=== PATIENT | female | born 1955 | race Caucasian/White ===

== ENCOUNTER → 2016-06-12 | Outpatient (CLI) | payer MEDICARE, OTHER ==
[~2016-06-12] MED LIST: ASPI-556 PO; CARV25 PO; FOLI1 PO; LISI-662 PO; METF500T7 PO; METO25 PO; MIRT15 PO; PHOSLOC PO
== END | disposition home or self-care (01) ==
LOC: RADMN 13:42
PROVIDERS: ATTEND Family Medicine
DX: I67.2 Cerebral atherosclerosis (principal); G31.89 Other specified degenerative diseases of nervous system; G93.89 Other specified disorders of brain; R90.82 White matter disease, unspecified
CPT/HCPCS: 70450

== ENCOUNTER 2021-12-30 13:12 | Inpatient (IN) | payer MEDICARE, OTHER ==
[2021-12-30] VITALS (8 sets, daily range): BP systolic 97–120; BP diastolic 40–79
[~2021-12-30] VITALS: Ht 152.4 cm; Wt 60.3 kg
[~2021-12-30 13:12] MED LIST changes: +ASPI-1444 PO; -ASPI-556 PO; +FOLI-130 PO; -FOLI1 PO; -LISI-662 PO; +LISI-894 PO; +METF-81 PO; -METF500T7 PO; -METO25 PO; +MIRT-89 PO; -MIRT15 PO
[2021-12-30 14:56] LABS: GLUCOSE,POINT OF CARE 169 MG/DL (70-110)
[2021-12-30 15:04] LABS: COVID AG,FIA SOURCE NASOPHARYNGEAL
[2021-12-30 15:07] LABS: BASOPHILS % (AUTO) 0.7 % (0.0-2.0); EOSINOPHILS % (AUTO) 0 % (1.0-6.0); HEMATOCRIT 38.6 % (36-46); HEMOGLOBIN 12.2 g/dL (12.0-16.0); LYMPHOCYTES % (AUTO) 12.3 % (22.0-44.0); MEAN CORPUSCULAR HEMOGLOBIN 29.1 pg (26.0-34.0); MEAN CORPUSCULAR HGB CONC 31.6 G/dL (31.0-37.0); MEAN CORPUSCULAR VOLUME 92 fL (80-100); MONOCYTES % (AUTO) 6.2 % (2.0-9.0); NEUTROPHILS # (AUTO) 13.3 K/uL (1.8-7.7); NEUTROPHILS % (AUTO) 80.8 % (40.0-70.0); PLATELET COUNT (AUTO) 250 K/uL (150-450); RED BLOOD CELL COUNT(AUTO) 4.18 MIL/uL (4.00-5.20); RED CELL DISTRIBUTION WIDTH 16.3 % (11.5-14.5)
[2021-12-30] MEDS ORDERED: AMLO2.5T96 PO (15:12)
[2021-12-30] MEDS ORDERED: CARV6 PO (15:12)
[2021-12-30 15:22] LABS: CALCIUM, TOTAL 9.3 mg/dL (8.8-10.5); CREATININE 13.15 mg/dL (0.60-1.30); POTASSIUM 3.9 mmol/L (3.5-5.1)
[2021-12-30 15:30] LABS: AMMONIA 16 umol/L (11-32)
[2021-12-30 15:47] LABS: ALBUMIN 3.9 g/dL (3.4-5.0); BILIRUBIN,TOTAL 0.6 mg/dL (0.1-1.0); TOTAL PROTEIN, SERUM 7.8 g/dL (6.4-8.2)
[2021-12-30 18:06] LABS: GLUCOSE,POINT OF CARE 149 MG/DL (70-110)
[2021-12-30] MEDS ORDERED: VANCOMYCIN 1GM/WATER(PEG/NADA) 200 ML IV ONE (19:00)
[2021-12-30] MEDS ORDERED: GENTAMICIN 120 MG/NACL ISO-OSM 100 ML IV ONE (19:00)
[2021-12-30] MEDS ORDERED: *CLINICAL-CEFEPIME DOSING CLINICAL ONE (21:45)
[2021-12-30] MEDS ORDERED: SODIUM CHLORIDE 0.9% 1,000 ML ONE (21:46)
[2021-12-30] MEDS ORDERED: CEFEPIME HCL 1 GM in DEXTROSE 5%-WATER 50 ML IV ONE (22:00)
[2021-12-30] MEDS ORDERED: SODIUM CHLORIDE 0.9% 250 ML IV ONE (23:24)
[2021-12-31] VITALS (16 sets, daily range): BP systolic 106–172; BP diastolic 59–100
[2021-12-31] MEDS ORDERED: INSULIN LISPRO 100 UNITS/ML SQ PRN (02:00)
[2021-12-31] MEDS ORDERED: DEXTROSE 50%-WATER 25 GM/50 ML SYRINGE IVP PRN ×2 (02:00)
[2021-12-31 06:12] LABS: LACTIC ACID 2.2 mmol/L (0.4-2.0)
[2021-12-31 06:20] LABS: BASOPHILS % (AUTO) 0.1 % (0.0-2.0); EOSINOPHILS % (AUTO) 0.1 % (1.0-6.0); HEMATOCRIT 38.4 % (36-46); HEMOGLOBIN 12.4 g/dL (12.0-16.0); LYMPHOCYTES % (AUTO) 7.1 % (22.0-44.0); MEAN CORPUSCULAR HEMOGLOBIN 29.2 pg (26.0-34.0); MEAN CORPUSCULAR HGB CONC 32.2 G/dL (31.0-37.0); MEAN CORPUSCULAR VOLUME 91 fL (80-100); MONOCYTES # (AUTO) 0.9 K/uL (0.1-1.0); MONOCYTES % (AUTO) 6.3 % (2.0-9.0); NEUTROPHILS # (AUTO) 11.9 K/uL (1.8-7.7); PLATELET COUNT (AUTO) 235 K/uL (150-450); RED BLOOD CELL COUNT(AUTO) 4.24 MIL/uL (4.00-5.20); RED CELL DISTRIBUTION WIDTH 16.7 % (11.5-14.5)
[2021-12-31 07:00] LABS: NEUTROPHILS % (AUTO) 86.4 % (40.0-70.0)
[2021-12-31 08:11] LABS: ANION GAP 28 mmol/L (8-16); CARBON DIOXIDE 14 mmol/L (22-29); CHLORIDE 97 mmol/L (98-107); CREATININE 6.64 mg/dL (0.60-1.30); GLOMERULAR FILTR. RATE CALC 6 mL/min (>60); GLUCOSE,RANDOM 122 mg/dL (70-110); POTASSIUM 3.3 mmol/L (3.5-5.1); SODIUM SERUM 139 mmol/L (136-145); UREA NITROGEN, BLOOD 49 mg/dL (7-18)
[2021-12-31 08:39] LABS: ALANINE AMINOTRANSFERASE 16 U/L (12-78); ALBUMIN 3.8 g/dL (3.4-5.0); ALKALINE PHOSPHATASE 72 U/L (46-116); ASPARTATE AMINOTRANSFERASE 25 U/L (15-37); BILIRUBIN,TOTAL 0.6 mg/dL (0.1-1.0); CREATINE KINASE, TOTAL ONLY 233 U/L (26-192); TOTAL PROTEIN, SERUM 7.8 g/dL (6.4-8.2)
[2021-12-31] MEDS: CALCIUM ACETATE 667 MG CAPSULE PO SCH ×3 (09:06→17:33)
[2021-12-31] MEDS: CARVEDILOL 6.25 MG TABLET PO SCH ×2 (09:06→21:00)
[2021-12-31] MEDS: ASPIRIN 81 MG DR TABLET PO SCH (09:07)
[2021-12-31] MEDS: FOLIC ACID 1 MG TABLET PO SCH (09:07)
[2021-12-31] MEDS: AmLODIPine BESYLATE 2.5 MG TABLET PO SCH (09:07)
[2021-12-31 09:10] LABS: THYROID STIMULATING HORMONE 0.24 uIU/mL (0.36-3.74)
[2021-12-31] MEDS ORDERED: HEPARIN SODIUM,PORCINE 1,000 UNITS/ML VIAL IVCATH ONE ×2 (14:00)
[2021-12-31 15:47] LABS: FREE T4 (FREE THYROXINE) 1.36 ng/dL (0.76-1.46)
[2021-12-31] MEDS ORDERED: HEPARIN SODIUM,PORCINE 1,000 UNITS/ML VIAL IVP ONE (16:30)
[2021-12-31 17:57] LABS: GLUCOMETER DEV NAME(LOC) 5S.2B; GLUCOSE,POINT OF CARE 105 MG/DL (70-110)
[2021-12-31] MEDS: CEFEPIME HCL 1 GM in DEXTROSE 5%-WATER 50 ML IV SCH (18:50)
[2021-12-31] MEDS ORDERED: CEFEPIME HCL 0.5 GM in DEXTROSE 5%-WATER 50 ML IV SCH (19:00)
[2022-01-01 00:12] VITALS: BP 158/59
[2022-01-01] MEDS ORDERED: NITROGLYCERIN 2% (1 GM=INCH) PACKET TP ONE (00:15)
[2022-01-01 04:25] VITALS: BP 151/71
[2022-01-01 04:51] LABS: GLUCOMETER DEV NAME(LOC) 5N.3; GLUCOSE,POINT OF CARE 126 MG/DL (70-110)
[2022-01-01 04:52] LABS: GLUCOMETER DEV NAME(LOC) 5N.3; GLUCOSE,POINT OF CARE 146 MG/DL (70-110)
[2022-01-01 04:52] LABS: GLUCOMETER DEV NAME(LOC) 5N.3; GLUCOSE,POINT OF CARE 116 MG/DL (70-110)
[2022-01-01] MEDS: INSULIN LISPRO 100 UNITS/ML SQ PRN ×2 (06:16→12:33)
[2022-01-01 06:27] LABS: GLUCOMETER DEV NAME(LOC) 5S.2B; GLUCOSE,POINT OF CARE 159 MG/DL (70-110)
[2022-01-01 07:30] VITALS: BP 117/54
[2022-01-01] MEDS: CALCIUM ACETATE 667 MG CAPSULE PO SCH ×3 (08:49→18:00)
[2022-01-01] MEDS: CARVEDILOL 6.25 MG TABLET PO SCH ×2 (08:49→21:45)
[2022-01-01] MEDS: AmLODIPine BESYLATE 2.5 MG TABLET PO SCH (08:50)
[2022-01-01] MEDS: FOLIC ACID 1 MG TABLET PO SCH (08:50)
[2022-01-01] MEDS: ASPIRIN 81 MG DR TABLET PO SCH (08:50)
[2022-01-01 09:42] LABS: CALCIUM, TOTAL 9.4 mg/dL (8.8-10.5); CREATININE 4.85 mg/dL (0.60-1.30); MAGNESIUM 1.8 mg/dL (1.80-2.40); PHOSPHORUS 2.9 mg/dL (2.5-4.9); POTASSIUM 3.5 mmol/L (3.5-5.1)
[2022-01-01 11:15] VITALS: BP 124/57
[2022-01-01 14:42] LABS: BASOPHILS % (AUTO) 0.6 % (0.0-2.0); EOSINOPHILS % (AUTO) 0.9 % (1.0-6.0); HEMATOCRIT 39.4 % (36-46); HEMOGLOBIN 12.8 g/dL (12.0-16.0); LYMPHOCYTES # (AUTO) 1.6 K/uL (1.0-4.8); LYMPHOCYTES % (AUTO) 15.8 % (22.0-44.0); MEAN CORPUSCULAR HEMOGLOBIN 29.5 pg (26.0-34.0); MEAN CORPUSCULAR HGB CONC 32.4 G/dL (31.0-37.0); MEAN CORPUSCULAR VOLUME 91 fL (80-100); MONOCYTES # (AUTO) 0.9 K/uL (0.1-1.0); NEUTROPHILS # (AUTO) 7.5 K/uL (1.8-7.7); NEUTROPHILS % (AUTO) 73.7 % (40.0-70.0); PLATELET COUNT (AUTO) 216 K/uL (150-450); RED BLOOD CELL COUNT(AUTO) 4.33 MIL/uL (4.00-5.20); RED CELL DISTRIBUTION WIDTH 16.6 % (11.5-14.5)
[2022-01-01 15:06] LABS: GLUCOMETER DEV NAME(LOC) 5S.2B; GLUCOSE,POINT OF CARE 157 MG/DL (70-110)
[2022-01-01 16:05] VITALS: BP 171/79
[2022-01-01 16:07] LABS: ALBUMIN 3.3 g/dL (3.4-5.0); BILIRUBIN,TOTAL 0.6 mg/dL (0.1-1.0); CALCIUM, TOTAL 9.7 mg/dL (8.8-10.5); CREATININE 5.36 mg/dL (0.60-1.30); TOTAL PROTEIN, SERUM 7.2 g/dL (6.4-8.2)
[2022-01-01] MEDS: VITAMIN B COMP/VIT C/FOLIC ACID CAPSULE PO SCH (17:00)
[2022-01-01 17:06] LABS: GLUCOMETER DEV NAME(LOC) 5S.2B; GLUCOSE,POINT OF CARE 120 MG/DL (70-110)
[2022-01-01] MEDS ORDERED: POTASSIUM CHLORIDE 20 MEQ ER TABLET PO ONE (17:45)
[2022-01-01] MEDS ORDERED: AmLODIPine BESYLATE 10 MG TABLET PO ONE (17:45)
[2022-01-01] MEDS ORDERED: HydrALAZINE HCL 20 MG/ML VIAL IVP PRN (17:45)
[2022-01-01] MEDS: CEFEPIME HCL 1 GM in DEXTROSE 5%-WATER 50 ML IV SCH (18:26)
[2022-01-01 20:02] VITALS: BP 147/56
[2022-01-02] VITALS (14 sets, daily range): BP systolic 118–193; BP diastolic 58–99
[2022-01-02] MEDS: INSULIN LISPRO 100 UNITS/ML SQ PRN (06:24)
[2022-01-02 07:04] LABS: BASOPHILS % (AUTO) 0.7 % (0.0-2.0); EOSINOPHILS % (AUTO) 1.1 % (1.0-6.0); HEMATOCRIT 39.1 % (36-46); HEMOGLOBIN 12.7 g/dL (12.0-16.0); LYMPHOCYTES # (AUTO) 1.4 K/uL (1.0-4.8); LYMPHOCYTES % (AUTO) 14.4 % (22.0-44.0); MEAN CORPUSCULAR HEMOGLOBIN 29.7 pg (26.0-34.0); MEAN CORPUSCULAR HGB CONC 32.5 G/dL (31.0-37.0); MEAN CORPUSCULAR VOLUME 91 fL (80-100); MONOCYTES # (AUTO) 0.8 K/uL (0.1-1.0); NEUTROPHILS # (AUTO) 7.1 K/uL (1.8-7.7); NEUTROPHILS % (AUTO) 74.8 % (40.0-70.0); PLATELET COUNT (AUTO) 215 K/uL (150-450); RED BLOOD CELL COUNT(AUTO) 4.28 MIL/uL (4.00-5.20); RED CELL DISTRIBUTION WIDTH 16.9 % (11.5-14.5)
[2022-01-02 07:22] LABS: ALBUMIN 3.2 g/dL (3.4-5.0); BILIRUBIN,TOTAL 0.7 mg/dL (0.1-1.0); CALCIUM, TOTAL 10.2 mg/dL (8.8-10.5); CREATININE 6.52 mg/dL (0.60-1.30); TOTAL PROTEIN, SERUM 7.6 g/dL (6.4-8.2)
[2022-01-02] MEDS: CALCIUM ACETATE 667 MG CAPSULE PO SCH ×3 (08:00→18:00)
[2022-01-02] MEDS: VITAMIN B COMP/VIT C/FOLIC ACID CAPSULE PO SCH (09:00)
[2022-01-02] MEDS: ASPIRIN 81 MG DR TABLET PO SCH (09:00)
[2022-01-02] MEDS: FOLIC ACID 1 MG TABLET PO SCH (09:00)
[2022-01-02] MEDS: CARVEDILOL 6.25 MG TABLET PO SCH ×2 (09:00→20:14)
[2022-01-02] MEDS: AmLODIPine BESYLATE 2.5 MG TABLET PO SCH (09:00)
[2022-01-02] MEDS ORDERED: SODIUM CHLORIDE 0.9% 2,000 ML ONE (09:37)
[2022-01-02 11:06] LABS: GLUCOMETER DEV NAME(LOC) 5S.2B; GLUCOSE,POINT OF CARE 177 MG/DL (70-110)
[2022-01-02 11:06] LABS: GLUCOMETER DEV NAME(LOC) 5S.2B; GLUCOSE,POINT OF CARE 183 MG/DL (70-110)
[2022-01-02] MEDS ORDERED: CloNIDine 0.2 MG/24 HOUR PATCH TD ONE (15:00)
[2022-01-02] MEDS: LABETALOL HCL 5 MG/ML 20 ML VIAL IVP SCH (20:13)
[2022-01-02] MEDS: CEFEPIME HCL 1 GM in DEXTROSE 5%-WATER 50 ML IV SCH (20:13)
[2022-01-02] MEDS ORDERED: CEFEPIME HCL 1 GM in DEXTROSE 5%-WATER 50 ML IV SCH (21:00)
[2022-01-03 00:14] VITALS: BP 137/75
[2022-01-03] MEDS: LABETALOL HCL 5 MG/ML 20 ML VIAL IVP SCH ×6 (04:42→21:43)
[2022-01-03 04:55] VITALS: BP 170/86
[2022-01-03 06:07] LABS: GLUCOMETER DEV NAME(LOC) 5S.2B; GLUCOSE,POINT OF CARE 172 MG/DL (70-110)
[2022-01-03 06:07] LABS: GLUCOMETER DEV NAME(LOC) 5S.2B; GLUCOSE,POINT OF CARE 150 MG/DL (70-110)
[2022-01-03 07:05] LABS: BASOPHILS % (AUTO) 1.1 % (0.0-2.0); HEMATOCRIT 37.2 % (36-46); LYMPHOCYTES # (AUTO) 1.1 K/uL (1.0-4.8); LYMPHOCYTES % (AUTO) 15.3 % (22.0-44.0); MEAN CORPUSCULAR HEMOGLOBIN 29.4 pg (26.0-34.0); MEAN CORPUSCULAR HGB CONC 32.4 G/dL (31.0-37.0); MEAN CORPUSCULAR VOLUME 91 fL (80-100); MONOCYTES # (AUTO) 0.7 K/uL (0.1-1.0); MONOCYTES % (AUTO) 9.2 % (2.0-9.0); NEUTROPHILS # (AUTO) 5.3 K/uL (1.8-7.7); NEUTROPHILS % (AUTO) 72.4 % (40.0-70.0); PLATELET COUNT (AUTO) 195 K/uL (150-450); RED CELL DISTRIBUTION WIDTH 16.9 % (11.5-14.5)
[2022-01-03 07:19] LABS: ALBUMIN 2.7 g/dL (3.4-5.0); BILIRUBIN,TOTAL 0.5 mg/dL (0.1-1.0); CALCIUM, TOTAL 9.7 mg/dL (8.8-10.5); CREATININE 3.93 mg/dL (0.60-1.30); POTASSIUM 3.4 mmol/L (3.5-5.1)
[2022-01-03 07:51] VITALS: BP 150/81
[2022-01-03] MEDS: CALCIUM ACETATE 667 MG CAPSULE PO SCH ×3 (08:00→18:00)
[2022-01-03] MEDS: VITAMIN B COMP/VIT C/FOLIC ACID CAPSULE PO SCH (08:12)
[2022-01-03] MEDS: ASPIRIN 81 MG DR TABLET PO SCH (08:12)
[2022-01-03] MEDS: CARVEDILOL 6.25 MG TABLET PO SCH ×2 (08:12→22:22)
[2022-01-03] MEDS: AmLODIPine BESYLATE 2.5 MG TABLET PO SCH (08:12)
[2022-01-03] MEDS: FOLIC ACID 1 MG TABLET PO SCH (08:12)
[2022-01-03 08:41] LABS: GLUCOMETER DEV NAME(LOC) 5N.3; GLUCOSE,POINT OF CARE 193 MG/DL (70-110)
[2022-01-03 11:26] VITALS: BP 140/78
[2022-01-03] MEDS: INSULIN LISPRO 100 UNITS/ML SQ PRN (13:02)
[2022-01-03 16:03] VITALS: BP 154/77
[2022-01-03 16:57] LABS: GLUCOMETER DEV NAME(LOC) 5N.3; GLUCOSE,POINT OF CARE 194 MG/DL (70-110)
[2022-01-03] MEDS ORDERED: HEPARIN SODIUM,PORCINE 1,000 UNITS/ML VIAL IVP ONE (17:17)
[2022-01-03 20:23] LABS: ABG BASE EXCESS -4.9 mmol/L (-2.0-3.0); ABG CARBOXYHEMOGLOBIN 0.6 % (0.0-1.5); ABG HCO3 21.3 mmol/L (22.0-26.0); ABG METHEMOGLOBIN 0.3 % (0.0-1.5); ABG OXYGEN CONTENT 17.8 mL/dL (15.0-23.0); ABG OXYGEN SATURATION 96.5 % (95.0-98.0); ABG OXYHEMOGLOBIN 95.6 % (94.0-100.0); ABG PCO2 30 mmHg (35-45); ABG PH 7.424 (7.35-7.450); ABG TOTAL HEMOGLOBIN 13.2 G/dL (12.0-18.0); PO2, ARTERIAL BG 84.8 mmHg (79.0-87.0); SOURCE, BLOOD GAS ARTERIAL; TEMPERATURE, FAHRENHEIT, BG 98.1 FAHREN (96.0-98.6)
[2022-01-03 20:24] LABS: ABG A-A DIFF O2 28.7 mmHg (10-20.0); SITE, BLOOD GAS LFT RADIAL
[2022-01-03 20:33] VITALS: BP 180/95
[2022-01-03 21:46] LABS: GLUCOMETER DEV NAME(LOC) 5N.3; GLUCOSE,POINT OF CARE 183 MG/DL (70-110)
[2022-01-03] MEDS ORDERED: SODIUM CHLORIDE 0.9% 1,000 ML ONE (22:13)
[2022-01-03] MEDS: CEFEPIME HCL 1 GM in DEXTROSE 5%-WATER 50 ML IV SCH (22:22)
[2022-01-04] VITALS (16 sets, daily range): BP systolic 96–178; BP diastolic 31–88
[2022-01-04 00:51] LABS: GLUCOMETER DEV NAME(LOC) 5S.2B; GLUCOSE,POINT OF CARE 192 MG/DL (70-110)
[2022-01-04] MEDS: LABETALOL HCL 5 MG/ML 20 ML VIAL IVP SCH ×6 (04:13→21:45)
[2022-01-04] MEDS: INSULIN LISPRO 100 UNITS/ML SQ PRN (06:23)
[2022-01-04 06:51] LABS: GLUCOMETER DEV NAME(LOC) 5N.1C; GLUCOSE,POINT OF CARE 212 MG/DL (70-110)
[2022-01-04] MEDS: CALCIUM ACETATE 667 MG CAPSULE PO SCH ×3 (08:00→17:00)
[2022-01-04 08:20] LABS: ALBUMIN 2.7 g/dL (3.4-5.0); BILIRUBIN,TOTAL 0.4 mg/dL (0.1-1.0); CALCIUM, TOTAL 9.9 mg/dL (8.8-10.5); CREATININE 6.06 mg/dL (0.60-1.30); POTASSIUM 3.6 mmol/L (3.5-5.1); TOTAL PROTEIN, SERUM 7.2 g/dL (6.4-8.2)
[2022-01-04] MEDS: VITAMIN B COMP/VIT C/FOLIC ACID CAPSULE PO SCH (09:00)
[2022-01-04] MEDS: AmLODIPine BESYLATE 2.5 MG TABLET PO SCH (09:00)
[2022-01-04] MEDS: CARVEDILOL 6.25 MG TABLET PO SCH ×2 (09:00→21:46)
[2022-01-04] MEDS: FOLIC ACID 1 MG TABLET PO SCH (09:50)
[2022-01-04] MEDS: ASPIRIN 81 MG DR TABLET PO SCH (09:50)
[2022-01-04 11:00] LABS: BASOPHILS % (AUTO) 0.7 % (0.0-2.0); EOSINOPHILS % (AUTO) 4.7 % (1.0-6.0); HEMATOCRIT 38.7 % (36-46); HEMOGLOBIN 12.6 g/dL (12.0-16.0); LYMPHOCYTES # (AUTO) 1.2 K/uL (1.0-4.8); LYMPHOCYTES % (AUTO) 16.4 % (22.0-44.0); MEAN CORPUSCULAR HEMOGLOBIN 29.3 pg (26.0-34.0); MEAN CORPUSCULAR HGB CONC 32.6 G/dL (31.0-37.0); MEAN CORPUSCULAR VOLUME 90 fL (80-100); MONOCYTES # (AUTO) 0.7 K/uL (0.1-1.0); MONOCYTES % (AUTO) 9.8 % (2.0-9.0); NEUTROPHILS # (AUTO) 5.1 K/uL (1.8-7.7); NEUTROPHILS % (AUTO) 68.4 % (40.0-70.0); PLATELET COUNT (AUTO) 218 K/uL (150-450); RED CELL DISTRIBUTION WIDTH 16.6 % (11.5-14.5)
[2022-01-04] MEDS ORDERED: SODIUM CHLORIDE 0.9% 2,000 ML ONE (11:32)
[2022-01-04 12:06] LABS: GLUCOMETER DEV NAME(LOC) 5N.1C; GLUCOSE,POINT OF CARE 162 MG/DL (70-110)
[2022-01-04 17:47] LABS: GLUCOMETER DEV NAME(LOC) 5S.2B; GLUCOSE,POINT OF CARE 149 MG/DL (70-110)
[2022-01-04] MEDS: CEFEPIME HCL 1 GM in DEXTROSE 5%-WATER 50 ML IV SCH (21:45)
[2022-01-05] MEDS: LABETALOL HCL 5 MG/ML 20 ML VIAL IVP SCH ×6 (00:03→20:00)
[2022-01-05 00:27] VITALS: BP 160/79
[2022-01-05 03:01] LABS: GLUCOMETER DEV NAME(LOC) 5N.3; GLUCOSE,POINT OF CARE 169 MG/DL (70-110)
[2022-01-05 04:20] VITALS: BP 135/79
[2022-01-05 07:35] LABS: BASOPHILS % (AUTO) 0.7 % (0.0-2.0); EOSINOPHILS % (AUTO) 3.4 % (1.0-6.0); HEMATOCRIT 37.5 % (36-46); HEMOGLOBIN 12.4 g/dL (12.0-16.0); LYMPHOCYTES # (AUTO) 1.5 K/uL (1.0-4.8); MEAN CORPUSCULAR HEMOGLOBIN 29.6 pg (26.0-34.0); MEAN CORPUSCULAR VOLUME 90 fL (80-100); MONOCYTES # (AUTO) 0.8 K/uL (0.1-1.0); MONOCYTES % (AUTO) 10.7 % (2.0-9.0); NEUTROPHILS % (AUTO) 65.2 % (40.0-70.0); PLATELET COUNT (AUTO) 220 K/uL (150-450); RED BLOOD CELL COUNT(AUTO) 4.19 MIL/uL (4.00-5.20); RED CELL DISTRIBUTION WIDTH 16.9 % (11.5-14.5)
[2022-01-05 07:47] LABS: ALBUMIN 2.6 g/dL (3.4-5.0); BILIRUBIN,TOTAL 0.5 mg/dL (0.1-1.0); CALCIUM, TOTAL 9.6 mg/dL (8.8-10.5); CREATININE 3.84 mg/dL (0.60-1.30); POTASSIUM 3.8 mmol/L (3.5-5.1); TOTAL PROTEIN, SERUM 6.9 g/dL (6.4-8.2)
[2022-01-05 08:00] VITALS: BP 119/76
[2022-01-05] MEDS: CALCIUM ACETATE 667 MG CAPSULE PO SCH ×3 (08:00→17:34)
[2022-01-05] MEDS: VITAMIN B COMP/VIT C/FOLIC ACID CAPSULE PO SCH (09:00)
[2022-01-05] MEDS: ASPIRIN 81 MG DR TABLET PO SCH (09:00)
[2022-01-05] MEDS: CARVEDILOL 6.25 MG TABLET PO SCH ×2 (09:55→20:41)
[2022-01-05] MEDS: AmLODIPine BESYLATE 2.5 MG TABLET PO SCH (09:55)
[2022-01-05] MEDS: FOLIC ACID 1 MG TABLET PO SCH (09:55)
[2022-01-05 12:20] VITALS: BP 106/55
[2022-01-05 15:50] VITALS: BP 143/76
[2022-01-05] MEDS: INSULIN LISPRO 100 UNITS/ML SQ PRN ×2 (17:48→20:53)
[2022-01-05 19:20] VITALS: BP 112/74
[2022-01-05 20:31] LABS: GLUCOMETER DEV NAME(LOC) 5N.3; GLUCOSE,POINT OF CARE 182 MG/DL (70-110)
[2022-01-05 20:31] LABS: GLUCOMETER DEV NAME(LOC) 5N.3; GLUCOSE,POINT OF CARE 194 MG/DL (70-110)
[2022-01-05] MEDS: CEFEPIME HCL 1 GM in DEXTROSE 5%-WATER 50 ML IV SCH (21:27)
[2022-01-06] VITALS (13 sets, daily range): BP systolic 90–160; BP diastolic 45–98
[2022-01-06] MEDS: LABETALOL HCL 5 MG/ML 20 ML VIAL IVP SCH ×6 (04:00→20:00)
[2022-01-06 05:06] LABS: GLUCOMETER DEV NAME(LOC) 5N.1C; GLUCOSE,POINT OF CARE 189 MG/DL (70-110)
[2022-01-06 05:06] LABS: GLUCOMETER DEV NAME(LOC) 5N.3; GLUCOSE,POINT OF CARE 182 MG/DL (70-110)
[2022-01-06 06:49] LABS: BASOPHILS % (AUTO) 0.8 % (0.0-2.0); EOSINOPHILS % (AUTO) 5.9 % (1.0-6.0); HEMATOCRIT 37.4 % (36-46); HEMOGLOBIN 12.2 g/dL (12.0-16.0); LYMPHOCYTES # (AUTO) 1.3 K/uL (1.0-4.8); LYMPHOCYTES % (AUTO) 16.9 % (22.0-44.0); MEAN CORPUSCULAR HEMOGLOBIN 29.3 pg (26.0-34.0); MEAN CORPUSCULAR HGB CONC 32.5 G/dL (31.0-37.0); MEAN CORPUSCULAR VOLUME 90 fL (80-100); MONOCYTES # (AUTO) 0.8 K/uL (0.1-1.0); MONOCYTES % (AUTO) 9.5 % (2.0-9.0); NEUTROPHILS # (AUTO) 5.3 K/uL (1.8-7.7); NEUTROPHILS % (AUTO) 66.9 % (40.0-70.0); PLATELET COUNT (AUTO) 222 K/uL (150-450); RED BLOOD CELL COUNT(AUTO) 4.15 MIL/uL (4.00-5.20); RED CELL DISTRIBUTION WIDTH 16.8 % (11.5-14.5)
[2022-01-06 07:16] LABS: ALBUMIN 2.6 g/dL (3.4-5.0); BILIRUBIN,TOTAL 0.4 mg/dL (0.1-1.0); CALCIUM, TOTAL 10.2 mg/dL (8.8-10.5); CREATININE 5.38 mg/dL (0.60-1.30); POTASSIUM 3.6 mmol/L (3.5-5.1); TOTAL PROTEIN, SERUM 6.9 g/dL (6.4-8.2)
[2022-01-06] MEDS: INSULIN LISPRO 100 UNITS/ML SQ PRN ×2 (07:16→12:38)
[2022-01-06] MEDS: CALCIUM ACETATE 667 MG CAPSULE PO SCH ×3 (08:55→18:32)
[2022-01-06] MEDS: AmLODIPine BESYLATE 2.5 MG TABLET PO SCH ×2 (08:55→09:00)
[2022-01-06] MEDS: CARVEDILOL 6.25 MG TABLET PO SCH ×2 (08:55→20:55)
[2022-01-06] MEDS: ASPIRIN 81 MG CHEWABLE TABLET PO SCH (08:55)
[2022-01-06] MEDS: VITAMIN B COMP/VIT C/FOLIC ACID CAPSULE PO SCH (08:55)
[2022-01-06] MEDS: FOLIC ACID 1 MG TABLET PO SCH (08:58)
[2022-01-06 14:51] LABS: GLUCOMETER DEV NAME(LOC) 5N.3; GLUCOSE,POINT OF CARE 226 MG/DL (70-110)
[2022-01-06 14:51] LABS: GLUCOMETER DEV NAME(LOC) 5N.1C; GLUCOSE,POINT OF CARE 214 MG/DL (70-110)
[2022-01-06] MEDS: CEFEPIME HCL 1 GM in DEXTROSE 5%-WATER 50 ML IV SCH (20:55)
[2022-01-06 23:00] LABS: GLUCOMETER DEV NAME(LOC) 5N.1C; GLUCOSE,POINT OF CARE 193 MG/DL (70-110)
[2022-01-06 23:05] LABS: GLUCOMETER DEV NAME(LOC) 5N.3; GLUCOSE,POINT OF CARE 134 MG/DL (70-110)
[2022-01-07] MEDS: INSULIN LISPRO 100 UNITS/ML SQ PRN ×5 (00:47→23:39)
[2022-01-07 01:16] LABS: GLUCOMETER DEV NAME(LOC) 5N.1C; GLUCOSE,POINT OF CARE 248 MG/DL (70-110)
[2022-01-07 03:45] VITALS: BP 117/51
[2022-01-07] MEDS: LABETALOL HCL 5 MG/ML 20 ML VIAL IVP SCH ×3 (04:00→08:00)
[2022-01-07 07:06] LABS: ALBUMIN 2.6 g/dL (3.4-5.0); BASOPHILS % (AUTO) 0.9 % (0.0-2.0); BILIRUBIN,TOTAL 0.4 mg/dL (0.1-1.0); CALCIUM, TOTAL 9.7 mg/dL (8.8-10.5); CREATININE 4.25 mg/dL (0.60-1.30); EOSINOPHILS % (AUTO) 4.6 % (1.0-6.0); HEMATOCRIT 37.5 % (36-46); HEMOGLOBIN 12.4 g/dL (12.0-16.0); LYMPHOCYTES # (AUTO) 1.3 K/uL (1.0-4.8); LYMPHOCYTES % (AUTO) 16.6 % (22.0-44.0); MEAN CORPUSCULAR HEMOGLOBIN 29.7 pg (26.0-34.0); MEAN CORPUSCULAR HGB CONC 33.1 G/dL (31.0-37.0); MEAN CORPUSCULAR VOLUME 90 fL (80-100); MONOCYTES # (AUTO) 0.9 K/uL (0.1-1.0); MONOCYTES % (AUTO) 11.1 % (2.0-9.0); NEUTROPHILS # (AUTO) 5.2 K/uL (1.8-7.7); NEUTROPHILS % (AUTO) 66.8 % (40.0-70.0); PLATELET COUNT (AUTO) 252 K/uL (150-450); POTASSIUM 3.4 mmol/L (3.5-5.1); RED BLOOD CELL COUNT(AUTO) 4.19 MIL/uL (4.00-5.20); RED CELL DISTRIBUTION WIDTH 16.6 % (11.5-14.5); TOTAL PROTEIN, SERUM 7.1 g/dL (6.4-8.2)
[2022-01-07 07:21] VITALS: BP 109/72
[2022-01-07] MEDS: AmLODIPine BESYLATE 2.5 MG TABLET PO SCH (09:00)
[2022-01-07] MEDS: FOLIC ACID 1 MG TABLET PO SCH (09:15)
[2022-01-07] MEDS: CARVEDILOL 6.25 MG TABLET PO SCH ×2 (09:15→20:10)
[2022-01-07] MEDS: CALCIUM ACETATE 667 MG CAPSULE PO SCH ×3 (09:15→17:50)
[2022-01-07] MEDS: VITAMIN B COMP/VIT C/FOLIC ACID CAPSULE PO SCH (09:16)
[2022-01-07] MEDS: ASPIRIN 81 MG CHEWABLE TABLET PO SCH (09:16)
[2022-01-07 10:52] VITALS: BP 119/59
[2022-01-07 11:16] LABS: GLUCOMETER DEV NAME(LOC) 5N.1C; GLUCOSE,POINT OF CARE 199 MG/DL (70-110)
[2022-01-07 15:45] VITALS: BP 112/57
[2022-01-07 19:33] VITALS: BP 128/66
[2022-01-07] MEDS: CEFEPIME HCL 1 GM in DEXTROSE 5%-WATER 50 ML IV SCH (20:10)
[2022-01-07 21:11] LABS: GLUCOMETER DEV NAME(LOC) 5N.3; GLUCOSE,POINT OF CARE 264 MG/DL (70-110)
[2022-01-07 21:11] LABS: GLUCOMETER DEV NAME(LOC) 5N.3; GLUCOSE,POINT OF CARE 280 MG/DL (70-110)
[2022-01-07 23:41] VITALS: BP 149/70
[2022-01-08] VITALS (14 sets, daily range): BP systolic 90–151; BP diastolic 50–78
[2022-01-08 00:01] LABS: GLUCOMETER DEV NAME(LOC) 5N.3; GLUCOSE,POINT OF CARE 288 MG/DL (70-110)
[2022-01-08] MEDS: INSULIN LISPRO 100 UNITS/ML SQ PRN ×2 (06:02→12:07)
[2022-01-08 07:16] LABS: GLUCOMETER DEV NAME(LOC) 5N.1C; GLUCOSE,POINT OF CARE 313 MG/DL (70-110)
[2022-01-08] MEDS: FOLIC ACID 1 MG TABLET PO SCH (08:39)
[2022-01-08] MEDS: CALCIUM ACETATE 667 MG CAPSULE PO SCH ×3 (08:39→20:40)
[2022-01-08] MEDS: CARVEDILOL 6.25 MG TABLET PO SCH ×2 (08:39→20:40)
[2022-01-08] MEDS: AmLODIPine BESYLATE 2.5 MG TABLET PO SCH (08:40)
[2022-01-08] MEDS: ASPIRIN 81 MG CHEWABLE TABLET PO SCH (08:40)
[2022-01-08] MEDS: VITAMIN B COMP/VIT C/FOLIC ACID CAPSULE PO SCH (08:40)
[2022-01-08 11:24] LABS: BASOPHILS % (AUTO) 0.9 % (0.0-2.0); EOSINOPHILS % (AUTO) 5.1 % (1.0-6.0); HEMATOCRIT 35.3 % (36-46); HEMOGLOBIN 11.6 g/dL (12.0-16.0); LYMPHOCYTES # (AUTO) 1.3 K/uL (1.0-4.8); LYMPHOCYTES % (AUTO) 16.8 % (22.0-44.0); MEAN CORPUSCULAR HEMOGLOBIN 29.6 pg (26.0-34.0); MEAN CORPUSCULAR HGB CONC 32.9 G/dL (31.0-37.0); MEAN CORPUSCULAR VOLUME 90 fL (80-100); MONOCYTES % (AUTO) 12.7 % (2.0-9.0); NEUTROPHILS # (AUTO) 5.1 K/uL (1.8-7.7); NEUTROPHILS % (AUTO) 64.5 % (40.0-70.0); PLATELET COUNT (AUTO) 222 K/uL (150-450); RED BLOOD CELL COUNT(AUTO) 3.91 MIL/uL (4.00-5.20); RED CELL DISTRIBUTION WIDTH 16.7 % (11.5-14.5)
[2022-01-08 11:48] LABS: ALBUMIN 2.5 g/dL (3.4-5.0); BILIRUBIN,TOTAL 0.4 mg/dL (0.1-1.0); CALCIUM, TOTAL 10.7 mg/dL (8.8-10.5); CREATININE 5.88 mg/dL (0.60-1.30); TOTAL PROTEIN, SERUM 6.8 g/dL (6.4-8.2)
[2022-01-08 18:56] LABS: GLUCOMETER DEV NAME(LOC) 5N.3; GLUCOSE,POINT OF CARE 241 MG/DL (70-110)
[2022-01-08 18:56] LABS: GLUCOMETER DEV NAME(LOC) 5N.1C; GLUCOSE,POINT OF CARE 137 MG/DL (70-110)
[2022-01-08] MEDS: CEFEPIME HCL 1 GM in DEXTROSE 5%-WATER 50 ML IV SCH (20:40)
[2022-01-09] MEDS: INSULIN LISPRO 100 UNITS/ML SQ PRN ×2 (00:14→12:22)
[2022-01-09 04:55] VITALS: BP 165/72
[2022-01-09 08:13] VITALS: BP 152/85
[2022-01-09] MEDS: FOLIC ACID 1 MG TABLET PO SCH (08:15)
[2022-01-09] MEDS: CARVEDILOL 6.25 MG TABLET PO SCH (08:15)
[2022-01-09] MEDS: VITAMIN B COMP/VIT C/FOLIC ACID CAPSULE PO SCH (08:17)
[2022-01-09] MEDS: ASPIRIN 81 MG CHEWABLE TABLET PO SCH (08:17)
[2022-01-09] MEDS: AmLODIPine BESYLATE 2.5 MG TABLET PO SCH (08:17)
[2022-01-09] MEDS: CALCIUM ACETATE 667 MG CAPSULE PO SCH ×2 (08:18→12:20)
[2022-01-09 08:41] LABS: GLUCOMETER DEV NAME(LOC) 5N.1C; GLUCOSE,POINT OF CARE 135 MG/DL (70-110)
[2022-01-09 11:25] VITALS: BP 155/74
[2022-01-09] MEDS ORDERED: INSU100V SQ (12:51)
[2022-01-09] MEDS ORDERED: INSLAN SQ (12:51)
[2022-01-09] MEDS ORDERED: B CO1CAP6 PO (12:54)
[2022-01-09] MEDS ORDERED: HEPARIN SODIUM,PORCINE 1,000 UNITS/ML VIAL IVP ONE (15:24)
[2022-01-09 20:16] LABS: GLUCOMETER DEV NAME(LOC) 5N.3; GLUCOSE,POINT OF CARE 195 MG/DL (70-110)
[2022-01-09 20:16] LABS: GLUCOMETER DEV NAME(LOC) 5N.3; GLUCOSE,POINT OF CARE 208 MG/DL (70-110)
[2022-01-09] MEDS ORDERED: INSULIN GLARGINE,HUM.REC.ANLOG 100 UNITS/ML SQ SCH (21:00)
== END 2022-01-09 15:25 | DRG 70 ==
LOC: EMS 13:12 → 5N 19:05
PROVIDERS: ADMIT Hospitalist; ATTEND Hospitalist
PROC: 5A1D70Z Performance of Urinary Filtration, Intermittent, Less than 6 Hours Per Day (ICD-10-PCS; principal; 2021-12-30)
PROC: 5A1D70Z Performance of Urinary Filtration, Intermittent, Less than 6 Hours Per Day (ICD-10-PCS; 2021-12-31)
PROC: 5A1D70Z Performance of Urinary Filtration, Intermittent, Less than 6 Hours Per Day (ICD-10-PCS; 2022-01-02)
PROC: 5A1D70Z Performance of Urinary Filtration, Intermittent, Less than 6 Hours Per Day (ICD-10-PCS; 2022-01-04)
PROC: 5A1D70Z Performance of Urinary Filtration, Intermittent, Less than 6 Hours Per Day (ICD-10-PCS; 2022-01-06)
PROC: 5A1D70Z Performance of Urinary Filtration, Intermittent, Less than 6 Hours Per Day (ICD-10-PCS; 2022-01-08)
DX: G93.41 Metabolic encephalopathy (principal); N18.6 End stage renal disease; E87.2 Acidosis; I16.1 Hypertensive emergency; I12.0 Hypertensive chronic kidney disease with stage 5 chronic kidney disease or end stage renal disease; D72.829 Elevated white blood cell count, unspecified; E11.22 Type 2 diabetes mellitus with diabetic chronic kidney disease; E11.319 Type 2 diabetes mellitus with unspecified diabetic retinopathy without macular edema; Z20.822 Contact with and (suspected) exposure to COVID-19; D63.8 Anemia in other chronic diseases classified elsewhere; E87.6 Hypokalemia; H54.8 Legal blindness, as defined in USA; M81.0 Age-related osteoporosis without current pathological fracture; Z90.49 Acquired absence of other specified parts of digestive tract; Z79.82 Long term (current) use of aspirin; Z79.84 Long term (current) use of oral hypoglycemic drugs; Z79.899 Other long term (current) drug therapy; Z99.2 Dependence on renal dialysis
CPT/HCPCS: 36600; 70450; 70551; 71045; 72141; 80048; 80053; 82140; 82550; 82805; 82962; 83605; 83735; 84100; 84145; 84439; 84443; 84484; 85025; 87040; 87081; 87340; 90935; 92526; 92610; 93005; 93306; 93880; 95816; 99291; J0360; J0692; J1580; J1644; J1815; J3490; J7030; J7050; J7060; Q9967; 36415-L1; 36415-TC